=== PATIENT | female | born 1935 | race Caucasian/White ===

== ENCOUNTER → 2017-03-04 | Outpatient (CLI) | payer OTHER | LOC: FIMAGING 13:50 | PROVIDERS: ATTEND Physician Assistant | DX: Z12.31 Encounter for screening mammogram for malignant neoplasm of breast (principal); Z85.3 Personal history of malignant neoplasm of breast | CPT/HCPCS: G0202 ==

== ENCOUNTER 2017-10-29 14:43 | Inpatient (IN) | payer OTHER ==
[2017-10-29 16:07] LABS: PLATELET COUNT 177 10^3/uL (150-400)
[2017-10-29 16:16] LABS: INR 1.13 (0.83-1.16); PROTIME(PATIENT) 14.7 SEC (12.0-15.0)
[2017-10-29] MEDS ORDERED: IOPAMIDOL (ISOVUE 370) 100 ML BTL IV ONE (16:37)
--- NOTE | 2017-10-29 17:20 | EDPHY ---
H & P Stated Complaint: SOB, from PCP office Time Seen by Provider: 10/29/17 15:47 HPI/ROS: Chief complaint: Shortness of breath History of present illness: This is an 82-year-old female who presents to the emergency department for evaluation of shortness of breath. Patient reports the onset of symptoms 5 days ago. She reports symptoms have been slowly worsening. There has been mild chest discomfort. She went to her primary care doctor's office today and was noted that her pulse oximetry was 82%, she was sent here for further care. She denies other associated signs or symptoms including no fevers, no cold symptoms, no pain or swelling in the legs. She had a similar episode a few years ago secondary to CHF. Review of systems: A 10 point review of systems was obtained and other than described above was negative - Medical/Surgical History Other PMH: HTN, thyroid - Social History Smoking Status: Never smoked - Physical Exam Exam: General Appearance: Alert, nontoxic. Eyes: Pupils equal and round no pallor or injection. ENT, Mouth: Mucous membranes moist. Respiratory: Patient is talking in full sentences. No use of accessary muscles. Lung sounds globally diminished. Cardiovascular: Regular rate and rhythm. Gastrointestinal: Abdomen is soft and non tender, no masses, bowel sounds normal. Neurological: Alert and oriented x4. Strength and sensation intact and symmetrical. Skin: Warm and dry, no rashes. Musculoskeletal: Neck is supple non tender. Extremities are symmetrical, full range of motion. Psychiatric: Patient is oriented X 3, there is no agitation. Constitutional: Initial Vital Signs Temperature (C) 36.3 C 10/29/17 14:49 Heart Rate 59 L 10/29/17 14:49 Respiratory Rate 18 10/29/17 14:49 Blood Pressure 168/63 H 10/29/17 14:49 O2 Sat (%) 91 L 10/29/17 14:49 O2 Delivery Mode Nasal Cannula O2 (L/minute) 4 Allergies/Adverse Reactions: cefuroxime Allergy (Mild, Verified 10/29/17 18:41) Unknown Home Medications: Medication Instructions Recorded Aspirin [Aspirin 81mg (OTC)] 81 mg PO DAILY 06/07/13 Atenolol 100 mg PO DAILY 06/07/13 amLODIPine BESYLATE [Norvasc 5 mg 5 mg PO DAILY 06/07/13 (RX)] Calcium Carbonate [Oyster Shell 500 mg PO DAILY 10/29/17 Calcium 500 mg (*)] Cholecalciferol Vit D3 [Vitamin D3 1,000 units PO DAILY 10/29/17 (*)] Herbals/Supplements -Info Only 1 ea PO DAILY 10/29/17 Levothyroxine [Synthroid 88 mcg 88 mcg PO DAILY06 10/29/17 (*)] Multivitamins [Multivitamin (*)] 1 each PO DAILY 10/29/17 Medical Decision Making - Diagnostics Imaging Results: Imaging Impressions Chest X-Ray 10/29/17 15:52 Impression: Suspect acute congestive failure with interstitial pulmonary edema. Cannot exclude underlying lymphangitic metastatic disease in this patient with a history of breast cancer. Chest/Thorax CTA 10/29/17 16:35 Impression: 1. No evidence of pulmonary embolus using CT protocol. 2. Moderate arteriosclerotic calcified and noncalcified plaques involving the thoracic aorta with mild bulging of the aortic arch just distal to the left subclavian artery takeoff probably related to plaque formation and mild ulceration without aneurysm. 3. Marked dilatation of the right atrium with mild to moderate dilatation of the left atrium as well as mild dilatation of the right left ventricles. 4. Small bilateral pleural effusions with adjacent compressive atelectatic changes at the lung bases and some fibrotic streaks noted. Findings discussed with MOLLY Schwarz at 17:30 hour, 10/29/2017. Imaging: Discussed imaging studies w/ call center professional Radiologist, I viewed and interpreted images myself ED Course/Re-evaluation: Patient is discussed with my secondary supervising physician Dr. Regino Howell. Patient presents to the emergency depart with shortness of breath and hypoxia. Patient appears to have a CHF exacerbation. She is maintaining oxygen saturations with 2 L of oxygen by nasal cannula. She is given 20 mg of Lasix IV. She is admitted to Dr. Marsha Whyte for further evaluation and care. Differential Diagnosis: Included but not limited to pulmonary infections, pulmonary embolism, CHF, ACS, pneumothorax - Data Points Laboratory Results: Laboratory Results 10/29/17 15:56 10/29/17 15:56 10/29/17 10/29/17 10/29/17 16:34 15:56 15:56 WBC RBC Hgb Hct MCV MCH MCHC RDW Plt Count MPV Neut % (Auto) Lymph % (Auto) Perkins % (Auto) Eos % (Auto) Baso % (Auto) Nucleat RBC Rel Count Absolute Neuts (auto) Absolute Lymphs (auto) Absolute Monos (auto) Absolute Eos (auto) Absolute Basos (auto) Absolute Nucleated RBC Immature Gran % Immature Gran # PT 14.7 SEC SEC (12.0-15.0) INR 1.13 (0.83-1.16) APTT 33.1 SEC SEC (23.0-38.0) Sodium 141 mEq/L mEq/L (135-145) Potassium 4.6 mEq/L mEq/L (3.5-5.2) Chloride 101 mEq/L mEq/L (97-110) Carbon Dioxide 24 mEq/l mEq/l (22-31) Anion Gap 16 mEq/L mEq/L (8-16) BUN 25 mg/dL H mg/dL (7-23) Creatinine 0.9 mg/dL mg/dL (0.6-1.0) Estimated GFR 60 Glucose 93 mg/dL mg/dL (70-100) Calcium 9.6 mg/dL mg/dL (8.5-10.4) Total Bilirubin 1.1 mg/dL mg/dL (0.1-1.4) Conjugated Bilirubin 0.3 mg/dL mg/dL (0.0-0.5) Unconjugated Bilirubin 0.8 mg/dL mg/dL (0.0-1.1) AST 33 IU/L IU/L (14-46) ALT 45 IU/L IU/L (9-52) Alkaline Phosphatase 84 IU/L IU/L (38-126) Troponin I < 0.012 ng/mL ng/mL (0.000-0.034) NT-Pro-B Natriuret Pep 3640 pg/mL H pg/mL (0-450) Total Protein 6.6 g/dL g/dL (6.3-8.2) Albumin 4.0 g/dL g/dL (3.5-5.0) 10/29/17 15:56 WBC 7.83 10^3/uL 10^3/uL (3.80-9.50) RBC 4.46 10^6/uL 10^6/uL (4.18-5.33) Hgb 15.1 g/dL g/dL (12.6-16.3) Hct 42.6 % % (38.0-47.0) MCV 95.5 fL fL (81.5-99.8) MCH 33.9 pg pg (27.9-34.1) MCHC 35.4 g/dL g/dL (32.4-36.7) RDW 14.4 % % (11.5-15.2) Plt Count 177 10^3/uL 10^3/uL (150-400) MPV 10.9 fL fL (8.7-11.7) Neut % (Auto) 70.5 % % (39.3-74.2) Lymph % (Auto) 17.1 % % (15.0-45.0) Perkins % (Auto) 10.2 % % (4.5-13.0) Eos % (Auto) 0.9 % % (0.6-7.6) Baso % (Auto) 0.9 % % (0.3-1.7) Nucleat RBC Rel Count 0.0 % % (0.0-0.2) Absolute Neuts (auto) 5.52 10^3/uL 10^3/uL (1.70-6.50) Absolute Lymphs (auto) 1.34 10^3/uL 10^3/uL (1.00-3.00) Absolute Monos (auto) 0.80 10^3/uL 10^3/uL (0.30-0.80) Absolute Eos (auto) 0.07 10^3/uL 10^3/uL (0.03-0.40) Absolute Basos (auto) 0.07 10^3/uL 10^3/uL (0.02-0.10) Absolute Nucleated RBC 0.00 10^3/uL 10^3/uL (0-0.01) Immature Gran % 0.4 % % (0.0-1.1) Immature Gran # 0.03 10^3/uL 10^3/uL (0.00-0.10) PT INR APTT Sodium Potassium Chloride Carbon Dioxide Anion Gap BUN Creatinine Estimated GFR Glucose Calcium Total Bilirubin Conjugated Bilirubin Unconjugated Bilirubin AST ALT Alkaline Phosphatase Troponin I NT-Pro-B Natriuret Pep Total Protein Albumin Microbiology Results: MICROBIOLOGY 10/29/17 16:05 Nasal, Sinus - Swab Respiratory Panel (PCR) - Final No Organism Detected Medications Given: Discontinued Medications Furosemide (Lasix Injection) 20 mg IVP EDNOW ONE Stop: 10/29/17 17:47 Last Admin: 10/29/17 18:05 Dose: 20 mg Departure - Departure Disposition: [facility] Acute Clinical Impression: Acute exacerbation of congestive heart failure Qualifiers: Congestive heart failure type: unspecified Qualified Code(s): I50.9 - Heart failure, unspecified Condition: Fair
[2017-10-29] MEDS ORDERED: FUROSEMIDE 20 MG/2 ML VIAL IVP ONE (17:46)
--- NOTE | 2017-10-29 18:06 | CPEKG ---
Heart Rate: 67 RR Interval: 896 P-R Interval: 172 QRSD Interval: 78 QT Interval: 416 QTC Interval: 439 P Andover: 62 QRS Andover: 19 T Wave Andover: 5 EKG Severity - BORDERLINE ECG - EKG Impression: SINUS RHYTHM EKG Impression: PROBABLE LEFT ATRIAL ABNORMALITY EKG Impression: LOW VOLTAGE IN FRONTAL LEADS Electronically Signed By: Regino Vera 29-Oct-2017 22:45:35
[2017-10-29] MEDS ORDERED: ONDANSETRON DISINTEGRATING 4 MG TAB PO PRN (21:18)
[2017-10-29] MEDS ORDERED: ONDANSETRON 4 MG/2 ML VIAL IVP PRN (21:18)
[2017-10-29] MEDS ORDERED: ALBUTEROL 3 ML DEYVIAL IH PRN (21:31)
[2017-10-29] MEDS ORDERED: PROTOCOL POTASSIUM 1 DOSE MISC PRN (21:33)
[2017-10-29] MEDS ORDERED: hydrALAZINE 10 MG TAB PO SCH (22:00)
--- NOTE | 2017-10-29 22:18 | GHP ---
[f rep st] HISTORY AND PHYSICAL DATE OF ADMISSION: 10/29/2017 CHIEF COMPLAINT: Shortness of breath. HISTORY OF PRESENT ILLNESS: The patient is an 82-year-old female with history of hypertension and hyperlipidemia, who presents to the emergency department with shortness of breath. Her symptoms started 4-5 days ago when she noticed dyspnea on exertion. She also endorses orthopnea and is sleeping with 3 pillows to breathe. She denies chest pain or chest pressure. She reports increasing lower extremity edema over the past several days. She has no known history of coronary disease. She was admitted to the hospital in 2012, at which time she had an echocardiogram showing ejection fraction of 71%. A CT scan at that time showed evidence of emphysema. She does have a tobacco history, but quit many years ago. Back in 2012, she was discharged from the hospital on Combivent and albuterol, though it seems she has not continued to use these. She states over the past several years, she has been losing weight, though most recently she thinks she may have had a slight weight gain. In the emergency department, her BNP was elevated at 3640. Her chest x-ray was consistent with interstitial pulmonary edema. The patient was given 20 mg of IV Lasix and has had good diuresis from that. She is breathing more comfortably , though is on 4 L of oxygen by nasal cannula. She is admitted to the cardiac telemetry unit for further management. PAST MEDICAL HISTORY: 1. Hypertension. 2. Hyperlipidemia. 3. Hypothyroidism. 4. History of pulmonary hypertension. 5. COPD. 6. History of breast cancer. 7. History of jaw cancer. 8. Mild mitral regurgitation by 2013 echo. MEDICATIONS: Please see [facility] for outpatient medication list. ALLERGIES: Cefuroxime. FAMILY HISTORY: Her father of a heart attack under the age of 50. Her mother also reportedly had angina symptoms. SOCIAL HISTORY: The patient is . She lives independently. She has a tobacco history, though quit many years ago. She reports drinking 1 glass of wine per night. REVIEW OF SYSTEMS: A 10-point review of systems was performed and was negative except as per HPI. OBJECTIVE: VITAL SIGNS: Currently, temperature is 36.7, blood pressure 170/78 , heart rate 67, respiratory rate 16, she is 94% on 4 L of oxygen by nasal cannula. GENERAL: The patient is awake, alert, and oriented, in no acute distress. HEENT: Head is atraumatic, normocephalic. Pupils equal, round, react to light. Extraocular muscles intact. Oropharynx is clear. Mucous membranes are moist. NECK: Supple. She has 6-8 cm of JVD. HEART: Regular rate and rhythm with a 2/6 systolic ejection murmur. LUNGS: Crackles at both bases about detention up, with fair air exchange. No wheezes are detected. ABDOMEN: Soft, nondistended, nontender, with normoactive bowel sounds. EXTREMITIES: She has 1+ bilateral lower extremity pitting edema. NEUROLOGIC: Grossly nonfocal. She moves all 4 extremities, and strength is symmetric. LABORATORY DATA: CBC is normal. INR is 1.1. Complete metabolic panel is normal with the exception of a BUN of 25, creatinine is 0.9, potassium is 4.6. Initial troponin is negative. NT proBNP is 3640. EKG in the emergency department shows normal sinus rhythm with T-wave inversion in lead III and T-wave flattening in AVF. Otherwise, there is no ST-segment or T-wave changes concerning for acute ischemia. Chest x-ray from the emergency department, personally reviewed and interpreted, and is consistent with acute pulmonary edema. Per the radiology report, there is some consideration for an underlying lymphangitic metastatic disease given her history of breast cancer, though clinically, I suspect this is consistent with pulmonary edema. CT pulmonary angiogram of the chest is negative for pulmonary embolism. Moderate arteriosclerotic calcifications and noncalcified plaques involving the thoracic aorta are noted, as well as marked dilatation of the right atrium with mild to moderate dilatation of the left atrium, as well as mild dilatation of the right and left ventricles. In addition, there are small bilateral pleural effusions with adjacent compressive atelectatic changes at the lung bases and some fibrotic streaks noted. ASSESSMENT/PLAN: The patient is an 82-year-old female with a history of hypertension, hyperlipidemia, and chronic obstructive pulmonary disease, who presents to the emergency department with shortness of breath. Workup is consistent with acute heart failure. 1. Acute hypoxemic respiratory failure 2/2 decompensated heart failure. On 4 LPM. I reviewed her echocardiogram from 2012, at which time, a normal EF and mild mitral regurgitation was noted. An echocardiogram is ordered. She is diuresing well after 20 mg of IV Lasix. Will continue 20 mg IV Lasix b.i.d. Will also add hydralazine and nitroglycerin to help with diuresis and associated hypertension. She may benefit from beta michelle and/or Chito inhibitor once clinically improved. Will trend her troponin. Follow daily weights and I's and O's. She had a Lexiscan done in 2012 that was negative for ischemia. She likely warrants repeat risk stratification. Consider cardiology consult in am. 2. Hypertension. As above, she is being diuresed with Lasix and will receive low-dose hydralazine and nitroglycerin tonight. Her home medications can be continued once her med rec is completed. 3. Chronic obstructive pulmonary disease. This was seen initially on CT scan several years ago. No evidence of acute exacerbation. She is currently not on any inhalers. I will start Spiriva and add p.r.n. albuterol nebulizers. She will likely benefit from prescriptions at discharge and outpatient PFT's. 4. Hypothyroidism. Continue levothyroxine once her home medications are completed. 5. Pulmonary hypertension. This may be secondary to her underlying lung disease. Echo pending. 6. Valvular heart disease. As above, an echo is pending. 7. Deep venous thrombosis prophylaxis. Lovenox. 8. Code status. I did discuss code status with the patient. She wishes to be full code. DISPOSITION: Patient is admitted to inpatient status as I anticipate she will require greater than 48 hours hospitalization for ongoing management of her acute heart failure. /[id number]/MODL MTDD
[2017-10-29] MEDS: NITROGLYCERIN 2% 1 GM PACKET TP SCH (23:13)
[2017-10-30] MEDS ORDERED: NITROGLYCERIN 2% 1 GM PACKET TP SCH
[2017-10-30] MEDS: ACETAMINOPHEN 325 MG TAB PO PRN ×2 (03:30→20:14)
[2017-10-30] MEDS: NITROGLYCERIN 2% 1 GM PACKET TP SCH (05:40)
[2017-10-30] MEDS: TIOTROPIUM INHALER 18 MCG/DOSE 5 DOSE/MDI IH SCH (08:06)
--- NOTE | 2017-10-30 08:47 | PDMN ---
Medical Necessity Medical necessity: M190 heart failure: A-2 days: SOB on 4L -94%, CXR shows acute pulm edema, diuresing well with IV Lasix, hx of HTN, COPD, hypothyroidism cont to monitor,
[2017-10-30] MEDS ORDERED: Herbals/Supplements -Info Only PO SCH (09:00)
[2017-10-30] MEDS: CALCIUM CARBONATE 500 MG TAB PO SCH (09:39)
[2017-10-30] MEDS: FUROSEMIDE 20 MG/2 ML VIAL IVP SCH ×2 (09:39→16:08)
[2017-10-30] MEDS: MULTIVITAMINS 1 EACH TAB PO SCH (09:39)
[2017-10-30] MEDS: ASPIRIN EC 81 MG TAB PO SCH (09:39)
[2017-10-30] MEDS: amLODIPine BESYLATE 5 MG TAB PO SCH (09:39)
[2017-10-30] MEDS: CHOLECALCIFEROL VIT D3 1,000 UNITS TAB PO SCH (09:39)
[2017-10-30] MEDS: ENOXAPARIN 40 MG/0.4 ML SYR SC SCH (09:40)
--- NOTE | 2017-10-30 09:50 | ASMTCASEMG ---
Living Arrangements What is your living Answers: With Spouse arrangement? Who do you live with? Type Of Residence What kind of residence do Answers: House you live in? Discharge Plan Comments Coordination Status Comments Notes: Pt is a 82 y/o female admitted for CHF. Therapies have been ordered and awaiting recommendations. Needs are TBD at this time. CM to follow. Plan: TBD Date Signed: 10/30/2017 09:49 AM Electronically Signed By:NUVIA Nagel
[2017-10-30] MEDS: ATENOLOL 100 MG TAB PO SCH (10:29)
--- NOTE | 2017-10-30 12:14 | ECHO ---
[email or web address] [address] [address] Main: [phone] Fax: Transthoracic Echocardiogram Name: CHAI RAMIREZ MR#: [id number] Study Date: 10/30/2017 Study Time: 09:33 AM Date of : 1935 Age: 82 year(s) Height: 162.6 cm (64 in.) Weight: 56.7 kg (125 lb.) BSA: 1.6 m2 Gender: Female Examination: Echo Indication: Heart failure Image Quality: Contrast: Requested by: Marsha Whyte BP: 138 mmHg/67 mmHg Heart Rate: Rhythm: Indication: Heart failure Procedure Staff Agricultural Lender: Elisa Garcia Physician: Requesting Provider: Measurements: Chambers Valvular Assessment AV/MV Valvular Assessment TV/PV Normal Normal Normal Name Value Range Name Value Range Name Value Range Ao Daphney (2D): 2.9 cm (1.4 cm-2.6 AV meanP mmHg ( - ) TR Vmax: 3.69 mm/s ( - ) cm) MV E Vmax: 1.27 m/s ( - ) TR PGmax: 54 mmHg ( - ) IVSd (2D): 0.7 cm (0.6 cm-1.1 MV A Vmax: 0.80 m/s ( - ) syst. PAP: 64 mmHg ( - ) cm) MV E/A: 1.59 ( - ) LVDd (2D): 4.9 cm (3.9 cm-5.3 cm) LVDs (2D): 2.9 cm (2.1 cm-4 cm) LVPWd (2D): 0.8 cm ( - ) LVOTd 1.7 cm 1.7 cm mm LVEF (MOD4): 78 % (>=55 %) EF Range: 70-75 % Continued Measurements: Chambers Valvular Assessment AV/MV Valvular Assessment TV/PV Name Value Name Value Name Value LADs: 4.0 cm MV E/E' Septal: 32.60 CVP (est.): 10 mmHg LADs Lon.4 cm MV E/E' Lateral: 22.80 LA Area: 24.6 cm2 Additional Vessels Name Value Ao Ascendin.3 cm Patient: CHAI RAMIREZ Study Date: 10/30/2017 Page 1 of 2 09:33 AM Findings: Left Ventricle: Normal size left ventricle. No LV hypertrophy. Global hypercontractility of the left ventricle. The ejection fraction is estimated to be 70-75 %. No regional wall motion abnormality. Diastolic dysfunction is present. . Right Ventricle: Mildly dilated right ventricle. Left Atrium: The left atrium is moderately to severely dilated. Right Atrium: The right atrium is severely dilated. Mitral Valve: Moderate mitral annular calcification. Mild to moderate mitral regurgitation. Aortic Valve: The aortic valve is normal in appearance and function. The aortic valve is tri-leaflet. Moderate aortic cusp calcification is present. Tricuspid Valve: The tricuspid valve is normal in appearance and function. Moderate to severe tricuspid valve regurgitation. RVSP is 64-74 mmHG.. Pulmonic Valve: The pulmonic valve is normal in appearance and function. Trivial pulmonic valve regurgitation. Aorta: The aorta is normal. Pericardium: No pericardial effusion. Left side pleural effusion. Exam Comments: Dilated hepatic vein.. (No Signature Object) Patient: CHAI RAMIREZ Study Date: 10/30/2017 Page 2 of 2 09:33 AM [id number]
--- NOTE | 2017-10-30 13:35 | HOSPPROG ---
Hospitalist Progress Note Assessment/Plan: New Pt encounter 82yo female with hx of CHF, previously on diuretics, but stopped 4 years ago, admitted with CHF-E and acute resp failure #Acute Resp Failure due to CHF-E #Acute CHF-E, unknown systolic or diastolic as TTE is pending #HTN, improving #Hx of COPD, not in E Plan -Cont Lasix BID -Await TTE -Stop Hydralazine and Nitro -May need BB and SHIVANI-I pending TTE and clinical course -PT/OT -Full code -will need f/u with Cards in op setting Subjective: Still SOB, pedal edema is improving. Feels better overall. No CP or SOB Objective: Vital Signs Temp Pulse Resp BP Pulse Ox 36.6 C 64 14 141/61 H 96 10/30/17 11:10 10/30/17 11:10 10/30/17 11:10 10/30/17 11:10 10/30/17 11:10 Laboratory Results 10/30/17 03:14 10/29/17 10/30/17 10/31/17 05:59 05:59 05:59 Intake Total 1110 Output Total 700 Balance 410 PT 14.7 SEC (12.0-15.0) 10/29/17 15:56 INR 1.13 (0.83-1.16) 10/29/17 15:56 - Physical Exam Constitutional: no apparent distress Eyes: PERRL, EOMI Ears, Nose, Mouth, Throat: moist mucous membranes, hearing normal Cardiovascular: regular rate and rhythym, edema (1-2 + LE edema) Respiratory: reduced air movement, other (rales at bases) Gastrointestinal: normoactive bowel sounds, soft, non-tender abdomen Genitourinary: no bladder fullness Skin: warm Musculoskeletal: generalized weakness Neurologic: AAOx3 Psychiatric: interacting appropriately, not anxious, not encephalopathic ICD10 Worksheet Patient Problems: Problems Problem Status Onset Acute exacerbation of congestive heart failure Acute
[2017-10-30] MEDS: CYCLOBENZAPRINE 10 MG TAB PO PRN (18:07)
[2017-10-31] MEDS: LEVOTHYROXINE 88 MCG TAB PO SCH (07:48)
[2017-10-31] MEDS: TIOTROPIUM INHALER 18 MCG/DOSE 5 DOSE/MDI IH SCH (08:50)
[2017-10-31] MEDS: CALCIUM CARBONATE 500 MG TAB PO SCH (09:30)
[2017-10-31] MEDS: ATENOLOL 100 MG TAB PO SCH (09:30)
[2017-10-31] MEDS: ASPIRIN EC 81 MG TAB PO SCH (09:31)
[2017-10-31] MEDS: CHOLECALCIFEROL VIT D3 1,000 UNITS TAB PO SCH (09:31)
[2017-10-31] MEDS: amLODIPine BESYLATE 5 MG TAB PO SCH (09:31)
[2017-10-31] MEDS: FUROSEMIDE 20 MG/2 ML VIAL IVP SCH (09:31)
[2017-10-31] MEDS: MULTIVITAMINS 1 EACH TAB PO SCH (09:31)
[2017-10-31] MEDS: ENOXAPARIN 40 MG/0.4 ML SYR SC SCH (09:32)
[2017-10-31] MEDS: LISINOPRIL 5 MG TAB PO SCH (09:46)
--- NOTE | 2017-10-31 13:09 | HOSPPROG ---
Hospitalist Progress Note Assessment/Plan: 82yo female with hx of CHF, previously on diuretics, but stopped 4 years ago, admitted with CHF-E and acute resp failure TTE: preserved LVEF. diastolic dysfunction #Acute Resp Failure due to CHF-E #Acute CHF-E, Diastolic, improving #HTN #Hx of COPD, not in E Plan -change to Lasix orally -cont Amlodipine, Atenelol at current dose -Start Lisinopril -Cont Aspirin -PT/OT -Full code -will need f/u with Cards in op setting Subjective: diuresis has gone well, overall improving. no cp or sob. pedal edema better Objective: Vital Signs Temp Pulse Resp BP Pulse Ox 36.6 C 61 16 99/48 L 97 10/31/17 12:00 10/31/17 12:00 10/31/17 12:00 10/31/17 12:00 10/31/17 12:00 Laboratory Results 10/31/17 03:16 10/30/17 10/31/17 11/01/17 05:59 05:59 05:59 Intake Total 1110 1250 Output Total 700 2700 Balance 410 -1450 PT 14.7 SEC (12.0-15.0) 10/29/17 15:56 INR 1.13 (0.83-1.16) 10/29/17 15:56 - Physical Exam Constitutional: no apparent distress Eyes: PERRL Ears, Nose, Mouth, Throat: moist mucous membranes, hearing normal Cardiovascular: regular rate and rhythym, No edema Respiratory: no respiratory distress, reduced air movement Gastrointestinal: normoactive bowel sounds, soft, non-tender abdomen Skin: warm Neurologic: AAOx3 Psychiatric: interacting appropriately, not anxious, not encephalopathic Lymph, Heme, Immunologic: No petechiae ICD10 Worksheet Patient Problems: Problems Problem Status Onset Acute exacerbation of congestive heart failure Acute
--- NOTE | 2017-10-31 16:40 | ASMTCMCOM ---
CM Note CM Note Notes: Case discussed in morning rounds w/ Dr. Valenzuela and Kaci, RN. Therapies have cleared pt to discharge independent when medically stable. CM available for changes. Plan: Independent Date Signed: 10/31/2017 04:28 PM Electronically Signed By:NUVIA Nagel
[2017-10-31] MEDS: CYCLOBENZAPRINE 10 MG TAB PO PRN (21:34)
[2017-11-01] MEDS: LEVOTHYROXINE 88 MCG TAB PO SCH (03:21)
[2017-11-01 07:29] VITALS: BP 138/68; TEMP 97.8
[2017-11-01] MEDS: LISINOPRIL 5 MG TAB PO SCH (08:25)
[2017-11-01] MEDS: amLODIPine BESYLATE 5 MG TAB PO SCH (08:25)
[2017-11-01] MEDS: CHOLECALCIFEROL VIT D3 1,000 UNITS TAB PO SCH (08:26)
[2017-11-01] MEDS: ATENOLOL 100 MG TAB PO SCH (08:26)
[2017-11-01] MEDS: CALCIUM CARBONATE 500 MG TAB PO SCH (08:26)
[2017-11-01] MEDS: MULTIVITAMINS 1 EACH TAB PO SCH (08:27)
[2017-11-01] MEDS: ENOXAPARIN 40 MG/0.4 ML SYR SC SCH (08:27)
[2017-11-01] MEDS: ASPIRIN EC 81 MG TAB PO SCH (08:27)
[2017-11-01] MEDS: TIOTROPIUM INHALER 18 MCG/DOSE 5 DOSE/MDI IH SCH (08:49)
[2017-11-01 08:52] VITALS: PULSE 63; RESP 14; O2SAT 97
[2017-11-01] MEDS ORDERED: FUROSEMIDE 20 MG TAB PO SCH (09:00)
[2017-11-01] MEDS ORDERED: FUROSEMIDE 20 MG TAB PO ONE (09:59)
--- NOTE | 2017-11-01 10:02 | PDHOMEO2F ---
Home Oxygen Face to Face Home Orders: I certify that a physician or a nurse practitioner or physician's executive staff assistant has had a bosk-rh-forf encounter with this patient on the date of this order due to the diagnosis listed, which relates to the primary reason the patient requires home oxygen. Alternative treatments have been tried, or considered, and deemed ineffective. It is anticipated that supplemental oxygen will result in improvement with treatment. Home oxygen qualifying diagnosis: hypoxemia SpO2 on room air (%): 80 Frequency of home oxygen needed: continuous Home oxygen liters per minute: 2 Home oxygen delivery device: nasal cannula Concentrator: Yes E-tanks for mobility and back up: Yes If ordering portable O2, is the patient mobile in the home?: Yes I certify that, based on these findings, the home oxygen is medically necessary for this patient for the following length of time. Length of time home oxygen needed: 99 years
--- NOTE | 2017-11-01 10:56 | PDDCSUM ---
Discharge Summary Discharge Summary: 82yo female with hx of CHF, previously on diuretics, but stopped 4 years ago, admitted with CHF-E and acute resp failure TTE: preserved LVEF. diastolic dysfunction She was diuresed appropriately with IV lasix and has transitioned to Lasix 20mg po daily. She will f/u with her PCP to adjust Lasix as needed She is still requiring O2 and has been set up for home O2. Pending clinical course, she may not need O2. She can f/u with her PCP about this I have not made a f/u with Cards and a decision regarding if this is needed can be made upon f/u with PCP Although no systolic dysfunction, she was started on an SHIVANI-I due to HTN Amlodipine and Atenolol were kept w/o changes #Acute Resp Failure due to CHF-E #Acute CHF-E, Diastolic, improving #HTN #Hx of COPD, not in E Exam: NAD AAOX3 RRR DECREASED LUNG SOUNDS S/NT/ND NO LE EDEMA Meds: see med rec f/u: with PCP next week total time spent on d/c is 35 mins
--- NOTE | 2017-11-01 11:08 | PDHOMEO2F ---
Home Oxygen Face to Face Home Orders: I certify that a physician or a nurse practitioner or physician's real estate executive assistant has had a kltn-jy-[id number] encounter with this patient on the date of this order due to the diagnosis listed, which relates to the primary reason the patient requires home oxygen. Alternative treatments have been tried, or considered, and deemed ineffective. It is anticipated that supplemental oxygen will result in improvement with treatment. Home oxygen qualifying diagnosis: CHF SpO2 on room air (%): 80 Frequency of home oxygen needed: continuous Home oxygen liters per minute: 2 Home oxygen delivery device: nasal cannula Concentrator: Yes E-tanks for mobility and back up: Yes If ordering portable O2, is the patient mobile in the home?: Yes I certify that, based on these findings, the home oxygen is medically necessary for this patient for the following length of time. Length of time home oxygen needed: 99 years
--- NOTE | 2017-11-01 17:11 | ASDISCHSUM ---
Discharge Information Plan Status:Home with No Needs Medically Cleared to Leave:10/31/2017 Discharge Date:11/01/2017 02:37 PM CM D/C Disposition: ADT D/C Disposition:Home, Routine, Self-Care Projected Discharge Date:11/01/2017 12:00 AM Transportation at D/C: Discharge Delay Reason: Follow-Up Date:11/01/2017 12:00 AM Discharge Slot: Final Diagnosis: Placement Information Patient Contact Information Contact Name:KIEL Relationship: Address:[address] Work Phone: City:[place] Alternate Phone: State/Zip Code:[place] [address] Email: Financial Information Financial Class:Medicare Advantage Plans Primary Plan Desc:[facility] ADVANTAGE PLANS Primary Plan Number:[id number] Secondary Plan Desc: Secondary Plan Number: Assessment Information [facility] Initial CM Assessment Living Arrangements What is your living Answers: With Spouse arrangement? Who do you live with? Type Of Residence What kind of residence do Answers: House you live in? Discharge Plan Comments Coordination Status Comments Notes: Pt is a 82 y/o female admitted for CHF. Therapies have been ordered and awaiting recommendations. Needs are TBD at this time. CM to follow. Plan: TBD Date Signed: 10/30/2017 09:49 AM Electronically Signed By:NUVIA Nagel [facility] CM Progress Note CM Note CM Note Notes: Case discussed in morning rounds w/ Dr. Valenzuela and SANCHEZ Clemons. Therapies have cleared pt to discharge independent when medically stable. CM available for changes. Plan: Independent Date Signed: 10/31/2017 04:28 PM Electronically Signed By:NUVIA Nagel Intervention Information Intervention Type:*IM-Signed Date of Service:11/01/2017 11:42 AM Patient Type:Inpatient Staff Member:Yadira Rodríguez Hours: Discipline: Severity: Comment:
== END 2017-11-01 14:37 | disposition home or self-care (01) | DRG 291 ==
LOC: F2W 19:32
PROVIDERS: ADMIT Hospitalist; ATTEND Family Medicine
DX: I50.31 Acute diastolic (congestive) heart failure (principal); J96.01 Acute respiratory failure with hypoxia; E03.9 Hypothyroidism, unspecified; J44.9 Chronic obstructive pulmonary disease, unspecified; I10 Essential (primary) hypertension; E78.5 Hyperlipidemia, unspecified; Z85.3 Personal history of malignant neoplasm of breast
CPT/HCPCS: 96374; 97116-GP; 97161-GP; 97166-GO; 97530-GP; G8978-GP-CJ; G8979-GP-CI; G8980-GP-CI; G8987-GO-CI; G8988-GO-CH; G8989-GO-CH; J1650; J1940; Q9967

== ENCOUNTER → 2018-03-06 | Outpatient (CLI) | payer MEDICARE, OTHER | LOC: FIMAGING 13:07 | PROVIDERS: ATTEND Internal Medicine Hematology & Oncology | DX: Z12.31 Encounter for screening mammogram for malignant neoplasm of breast (principal); Z85.3 Personal history of malignant neoplasm of breast ==

== ENCOUNTER → 2018-08-26 | Outpatient (CLI) | payer OTHER | LOC: FIMAGING 09:14 | PROVIDERS: ATTEND Internal Medicine Gastroenterology | DX: R13.13 Dysphagia, pharyngeal phase (principal) ==

== ENCOUNTER → 2018-09-16 | Outpatient (CLI) | payer OTHER ==
[~2018-09-16] MED LIST: IOPAMIDOL (ISOVUE 370) 100 ML BTL IV ONE
== END ==
LOC: FIMAGING 09:51
PROVIDERS: ATTEND Internal Medicine Cardiovascular Disease
DX: I65.23 Occlusion and stenosis of bilateral carotid arteries (principal); I67.2 Cerebral atherosclerosis
CPT/HCPCS: 70498; Q9967

== ENCOUNTER → 2019-03-10 | Outpatient (CLI) | payer OTHER | LOC: FIMAGING 10:55 ==